=== PATIENT | female | born 1965 | race Caucasian/White ===

== ENCOUNTER 2021-05-23 10:01 | Emergency (ER) | payer BC ==
[~2021-05-23] VITALS: Ht 149.9 cm; Wt 54.8 kg
[2021-05-23 10:08] VITALS: BP 107/36
--- NOTE | 2021-05-23 10:19 | NUR ---
Left foot pinky toe backside with 2cm deep laceration around toe, happened yesterday 730pm. Went to this am, they gave pt a Tdap and wrapped the wound sent her here.
[2021-05-23] MEDS ORDERED: LIDOCAINE-MPF 1%, 5ML ONE (10:29)
[2021-05-23] MEDS ORDERED: LIDOCAINE 1%, 10ML INFIL ONE (10:30)
--- NOTE | 2021-05-23 10:37 | NUR ---
Bedside set up, lido/suture set up. AIDET provided
[2021-05-23] MEDS ORDERED: NEOSPORIN OINT. PKT 1 PACKET ONE (11:28)
--- NOTE | 2021-05-23 11:51 | NUR ---
Abx ointment between to/suture covered with gauze wrapped with kerlix and hospital sock on top.
== END 2021-05-23 12:11 | disposition home or self-care (01) ==
LOC: ED 12:00
DX: S91.115A Laceration without foreign body of left lesser toe(s) without damage to nail, initial encounter (principal); X58.XXXA Exposure to other specified factors, initial encounter; Y93.89 Activity, other specified; Y92.89 Other specified places as the place of occurrence of the external cause; Y99.8 Other external cause status
CPT/HCPCS: 12001; 99283